=== PATIENT | female | born 1955 | race Caucasian/White ===

== ENCOUNTER 2018-10-15 13:22 | Outpatient (CLI) | payer MEDICARE, BC ==
--- NOTE | 2018-10-15 15:02 | RAD ---
LUMBAR SPINE 5 VIEWS: INDICATION: Low back pain. FINDINGS: There is slight dextroscoliosis of the lumbar spine centered at L2. There is advanced multilevel deg enerative disk disease. No definite pars defects are evident. There are vascular calcifications inv olving the arch. There is anterolisthesis at L4 and L5 with retrolisthesis of L2 on L3. No acute fr acture is evident. IMPRESSION: 1. Moderate to severe spondylosis of the lumbar spine. 2. Mild dextroscoliosis of lumbar spine. 3. Grade I anterolisthesis of L4 on L5 with mild retrolisthesis of L2 on L3 which is likely degenera tive in nature. POS: CET
--- NOTE | 2018-10-15 15:14 | RAD ---
CERVICAL SPINE RADIOGRAPHS 5 VIEWS: INDICATION: Neck pain. FINDINGS: There is an ACDF centered at C5-6. There is solid osseous incorporation of bone graft. There is adv anced degenerative disk disease at C3-4 and C4-5 as well as C6-7. Osseous neural foramen appear kellen sly patent. There are vascular calcifications involving the carotid bodies. Lateral masses are symm etric. Lung apices are clear. IMPRESSION: 1. Anterior cervical diskectomy and fusion at C5-6. 2. Moder degenerative disk disease at C3-4, C4-5, and C6-7. Spinal alignment is preserved. 3. Carotid body calcification. POS: CET
== END 2018-10-15 13:23 | disposition home or self-care (01) ==
LOC: BICRAD 13:22
PROVIDERS: ATTEND Internal Medicine Rheumatology
DX: M54.2 Cervicalgia (principal); M54.5 Low back pain; Z98.890 Other specified postprocedural states; Z98.1 Arthrodesis status; I65.23 Occlusion and stenosis of bilateral carotid arteries; M50.31 Other cervical disc degeneration, high cervical region; M50.323 Other cervical disc degeneration at C6-C7 level; M50.321 Other cervical disc degeneration at C4-C5 level; M47.816 Spondylosis without myelopathy or radiculopathy, lumbar region; M41.86 Other forms of scoliosis, lumbar region; M43.16 Spondylolisthesis, lumbar region
CPT/HCPCS: 72050; 72110

== ENCOUNTER 2020-12-12 12:26 | Outpatient (CLI) | payer MEDICARE, BC | END 2020-12-12 12:27 | disposition home or self-care (01) | LOC: BICMRI 12:26 | PROVIDERS: ATTEND Family Medicine | DX: M51.36 Other intervertebral disc degeneration, lumbar region (principal); M54.16 Radiculopathy, lumbar region; M48.07 Spinal stenosis, lumbosacral region | CPT/HCPCS: 72148 ==